=== PATIENT | male | born 1955 | race Caucasian/White ===

== ENCOUNTER 2019-03-06 06:24 | Day surgery (SDC) | payer OTHER ==
[2019-03-05 12:36] VITALS: BMI 40.1
[2019-03-06 10:34] VITALS: BP 124/61; PULSE 63; TEMP 98.9
--- NOTE | 2019-03-07 16:17 | PATH ---
Surgical Pathology Report Patient Name: GAGANDEEP DANIELLE [facility]. Rec. #: [id number] /Age/Gender: 1955 (Age: 63) / M Account: [id number] Location: U-ENDOSCOPY Taken: 03/06/2019 Received: 03/06/2019 Reported: 03/07/2019 Physicians: Jonh Gilliam M.D. Specimen(s) Received A: HEPATIC FLEXURE POLYP B: ILEOCECAL VALVE POLYP C: POLYP SIGMOID Clinical History Fifth and History of colon polyps, screening Postoperative diagnosis: Colon polyps and diverticulosis Final Diagnosis A. HEPATIC FLEXURE POLYP, POLYPECTOMY: TUBULAR ADENOMA. B. ILEOCECAL VALVE POLYP, POLYPECTOMY: TUBULAR ADENOMA. C. SIGMOID COLON POLYP, BIOPSY: HYPERPLASTIC POLYP. Electronically Signed Clary Stokes M.D. Gross Description A. Received in formalin, labeled "hepatic flexure polyp biopsy" is a brito, irregular portion of soft tissue measuring 0.5 cm. in greatest dimension. The specimen is submitted in toto in one cassette. B. Received in formalin, labeled "ileocecal valve polyp biopsy" are 4 brito, irregular portions of soft tissue ranging from 0.2-0.3 cm. in greatest dimension. The specimens are submitted in toto in one cassette. C. Received in formalin, labeled "sigmoid colon polyp biopsy" are 3 brito, irregular portions of soft tissue ranging from 0.3-0.4 cm. in greatest dimension. The specimens are submitted in toto in one cassette. DL/03/06/2019 saudi03/06/2019
== END 2019-03-06 09:50 | disposition home or self-care (01) ==
LOC: JASU-ENDO 06:24
PROVIDERS: ATTEND Internal Medicine Gastroenterology
PROC: 0DBL8ZX Excision of Transverse Colon, Via Natural or Artificial Opening Endoscopic, Diagnostic (ICD-10-PCS; 2019-03-06)
PROC: 0DBN8ZX Excision of Sigmoid Colon, Via Natural or Artificial Opening Endoscopic, Diagnostic (ICD-10-PCS; 2019-03-06)
PROC: 0DBC8ZX Excision of Ileocecal Valve, Via Natural or Artificial Opening Endoscopic, Diagnostic (ICD-10-PCS; principal; 2019-03-06 08:00)
DX: Z12.11 Encounter for screening for malignant neoplasm of colon (principal); Z86.010 Personal history of colon polyps; D12.5 Benign neoplasm of sigmoid colon; D12.3 Benign neoplasm of transverse colon; K57.30 Diverticulosis of large intestine without perforation or abscess without bleeding; K64.8 Other hemorrhoids
CPT/HCPCS: 88305-TC

== ENCOUNTER → 2020-09-11 | Day surgery (SDC) | payer OTHER ==
[2020-09-11 10:07] LABS: BASO % 0.9 % (0-2.0); EOS % 3.1 % (0-4.5); HEMATOCRIT 41.1 % (35.4-49); HEMOGLOBIN 14.3 GM/dL (11.7-16.9); LYMPH % 13.9 % (8-40); MCH 28.9 pg (25.7-33.7); MCHC 34.7 g/dl (32.0-35.9); MEAN CELL VOLUME 83.3 fl (80-96); MEAN PLT VOLUME 10.6 fl (7.5-11.1); NEUT % 75.1 % (42.8-82.8); PLATELET COUNT 123 K/MM3 (134-434); RBC 4.93 M/mm3 (4.00-5.60); RDW 13.5 % (11.9-15.9); WHITE BLOOD COUNT 6.9 K/mm3 (4.0-10.0)
[2020-09-11 10:11] LABS: INR 1.02 (0.83-1.09); PROTHROMBIN TIME (PATIENT) 12.5 SEC (9.7-13.0)
== END | disposition home or self-care (01) ==
LOC: JRADIR 09:07
PROVIDERS: ATTEND Orthopaedic Surgery Sports Medicine
PROC: BQ00YZZ Plain Radiography of Right Hip using Other Contrast (ICD-10-PCS; principal; 2020-09-11)
DX: M25.551 Pain in right hip (principal)
CPT/HCPCS: 27093; 36415; 73525-TC-FY; 85025; 85610

== ENCOUNTER 2021-09-04 01:19 | Inpatient (IN) | payer OTHER ==
[2021-09-04] MEDS ORDERED: SODIUM CHLORIDE 1,000 ML IV STA ×2 (02:47→05:30)
[2021-09-04 03:22] LABS: EPI CELLS 3 /uL (0-25.1); HYALINE CASTS 4 /uL (0-3.1); URINE APPEARANCE CLEAR; URINE BACTERIA 5 /uL (0-1359); URINE BILIRUBIN NEGATIVE (NEGATIVE); URINE COLOR DK YELLOW; URINE GLUCOSE (UA) NEGATIVE (NEGATIVE); URINE KETONE TRACE (NEGATIVE); URINE LEUK ESTERASE NEGATIVE (NEGATIVE); URINE NITRITE NEGATIVE (NEGATIVE); URINE PROTEIN 1+ (NEGATIVE); URINE RBC 7 /uL (0-23.9); URINE WBC 7 /uL (0-25.8)
[2021-09-04 03:25] LABS: BASO % 0.6 % (0-2.0); EOS % 0.1 % (0-4.5); HEMATOCRIT 40.4 % (35.4-49); HEMOGLOBIN 13.4 GM/dL (11.7-16.9); LYMPH % 7.2 % (8-40); MCH 28.4 pg (25.7-33.7); MCHC 33.2 g/dl (32.0-35.9); MEAN CELL VOLUME 85.5 fl (80-96); MONO % 8.6 % (3.8-10.2); NEUT % 83.5 % (42.8-82.8); RBC 4.72 M/mm3 (4.00-5.60); RDW 13.5 % (11.9-15.9); WHITE BLOOD COUNT 12.6 K/mm3 (4.0-10.0)
[2021-09-04 03:27] LABS: METHADONE, UR NEGATIVE (NEGATIVE); OPIATES, URI NEGATIVE (NEGATIVE); URINE BARBITURATES NEGATIVE (NEGATIVE)
[2021-09-04 03:28] LABS: PHENCYCLIDINE,URINE NEGATIVE (NEGATIVE)
[2021-09-04 03:29] LABS: URINE BENZODIAZEPINES NEGATIVE (NEGATIVE)
[2021-09-04 03:47] LABS: COCAINE, UR NEGATIVE (NEGATIVE); URINE AMPHETAMINES POSITIVE (NEGATIVE)
[2021-09-04 03:48] LABS: CHLORIDE 102 mmol/L (98-107); SODIUM 135 mmol/L (136-145)
[2021-09-04 03:50] LABS: CALCIUM 9.2 mg/dL (8.5-10.1)
[2021-09-04 03:51] LABS: ALBUMIN 4.1 g/dl (3.4-5.0); ANION GAP 11 MMOL/L (8-16); BLOOD UREA NITROGEN 41.8 mg/dL (7-18); CO2 23 mmol/L (21-32)
[2021-09-04 03:53] LABS: GLUCOSE,RANDOM 190 mg/dL (74-106)
[2021-09-04 03:54] LABS: CREATININE 2.2 mg/dL (0.55-1.3); SGOT/AST 100 U/L (15-37); SGPT/ALT 29 U/L (13-61)
[2021-09-04 03:56] LABS: TOT PROT 8.1 g/dl (6.4-8.2)
[2021-09-04 03:57] LABS: ALK PHOS 106 U/L (45-117)
[2021-09-04 04:12] LABS: MAGNESIUM 1.8 mg/dL (1.8-2.4); PHOSPHOROUS 3.5 mg/dL (2.5-4.9)
[2021-09-04 04:23] LABS: PLATELET ESTIMATE NORMAL
[2021-09-04 04:29] LABS: MEAN PLT VOLUME 10.2 fl (7.5-11.1); PLATELET COUNT 242 10^3/uL (134-434)
[2021-09-04 11:34] LABS: CALCIUM 9.5 mg/dL (8.5-10.1)
[2021-09-04 11:35] LABS: BLOOD UREA NITROGEN 39.5 mg/dL (7-18)
[2021-09-04 11:38] LABS: CREATININE 1.8 mg/dL (0.55-1.3)
[2021-09-04 12:51] VITALS: BMI 37.2
[2021-09-04] MEDS ORDERED: ACETAMINOPHEN 325 MG TABLET (FP) PO PRN (13:38)
[2021-09-04] MEDS: POTASSIUM CHLORIDE 10 MEQ in SODIUM CHLORIDE 0.45% 1,000 ML IVPB SCH (17:12)
[2021-09-04] MEDS: ATORVASTATIN CA 10 MG TABLET (FP) PO SCH (21:25)
[2021-09-05] MEDS ORDERED: HALOPERIDOL 5 MG TABLET PO ONE (00:06)
[2021-09-05] MEDS: HALOPERIDOL LACTATE 5 MG/ML IM PRN (00:27)
[2021-09-05] MEDS: POTASSIUM CHLORIDE 10 MEQ in SODIUM CHLORIDE 0.45% 1,000 ML IVPB SCH ×4 (01:14→20:15)
[2021-09-05] MEDS: glipiZIDE 5 MG TABLET (FP) PO SCH (06:00)
[2021-09-05] MEDS: ALLOPURINOL 100 MG TABLET (FP) PO SCH (10:26)
[2021-09-05 10:53] LABS: BASO % 0.6 % (0-2.0); EOS % 1.5 % (0-4.5); HEMATOCRIT 36.3 % (35.4-49); HEMOGLOBIN 12.5 GM/dL (11.7-16.9); LYMPH % 8.4 % (8-40); MCH 29.1 pg (25.7-33.7); MCHC 34.5 g/dl (32.0-35.9); MEAN CELL VOLUME 84.4 fl (80-96); MEAN PLT VOLUME 10.3 fl (7.5-11.1); MONO % 7.1 % (3.8-10.2); NEUT % 82.4 % (42.8-82.8); PLATELET COUNT 155 10^3/uL (134-434); RBC 4.29 M/mm3 (4.00-5.60); RDW 13.8 % (11.9-15.9); WHITE BLOOD COUNT 7.8 K/mm3 (4.0-10.0)
[2021-09-05 11:08] LABS: CALCIUM 8.8 mg/dL (8.5-10.1)
[2021-09-05 11:09] LABS: BLOOD UREA NITROGEN 31.9 mg/dL (7-18)
[2021-09-05 11:10] LABS: ALBUMIN 3.8 g/dl (3.4-5.0)
[2021-09-05 11:13] LABS: CREATININE 1.4 mg/dL (0.55-1.3)
[2021-09-05 11:14] LABS: BILIRUBIN,TOTAL 2.4 mg/dL (0.2-1); TOT PROT 7.5 g/dl (6.4-8.2)
[2021-09-05] MEDS: OLANZapine 5 MG TABLET PO SCH (22:26)
[2021-09-05] MEDS: ATORVASTATIN CA 10 MG TABLET (FP) PO SCH (22:26)
[2021-09-06] MEDS: POTASSIUM CHLORIDE 10 MEQ in SODIUM CHLORIDE 0.45% 1,000 ML IVPB SCH ×3 (02:27→17:13)
[2021-09-06] MEDS: glipiZIDE 5 MG TABLET (FP) PO SCH (06:07)
[2021-09-06] MEDS: ALLOPURINOL 100 MG TABLET (FP) PO SCH (09:35)
[2021-09-06] MEDS: OLANZapine 5 MG TABLET PO SCH ×2 (09:35→21:50)
[2021-09-06] MEDS: amLODIPine BESYLATE 5 MG TABLET (FP) PO SCH (11:03)
[2021-09-06] MEDS: ATORVASTATIN CA 10 MG TABLET (FP) PO SCH (21:50)
[2021-09-07] MEDS: POTASSIUM CHLORIDE 10 MEQ in SODIUM CHLORIDE 0.45% 1,000 ML IVPB SCH ×2 (02:14→13:12)
[2021-09-07] MEDS: glipiZIDE 5 MG TABLET (FP) PO SCH (06:01)
[2021-09-07] MEDS: OLANZapine 5 MG TABLET PO SCH ×2 (09:43→21:05)
[2021-09-07] MEDS: ALLOPURINOL 100 MG TABLET (FP) PO SCH (09:43)
[2021-09-07] MEDS: amLODIPine BESYLATE 5 MG TABLET (FP) PO SCH (09:43)
[2021-09-07] MEDS: HALOPERIDOL LACTATE 5 MG/ML IM PRN (12:53)
[2021-09-07] MEDS: ATORVASTATIN CA 10 MG TABLET (FP) PO SCH (21:05)
[2021-09-08] MEDS: POTASSIUM CHLORIDE 10 MEQ in SODIUM CHLORIDE 0.45% 1,000 ML IVPB SCH ×2 (06:09→10:04)
[2021-09-08] MEDS: glipiZIDE 5 MG TABLET (FP) PO SCH (06:27)
[2021-09-08 09:26] LABS: BASO % 0.7 % (0-2.0); EOS % 2.2 % (0-4.5); HEMATOCRIT 33.3 % (35.4-49); HEMOGLOBIN 11.1 GM/dL (11.7-16.9); LYMPH % 8.4 % (8-40); MCH 28.6 pg (25.7-33.7); MCHC 33.4 g/dl (32.0-35.9); MEAN CELL VOLUME 85.5 fl (80-96); MONO % 9.4 % (3.8-10.2); NEUT % 79.3 % (42.8-82.8); PLATELET COUNT 144 10^3/uL (134-434); RDW 13.5 % (11.9-15.9); WHITE BLOOD COUNT 8.8 K/mm3 (4.0-10.0)
[2021-09-08 09:33] LABS: BLOOD UREA NITROGEN 30.9 mg/dL (7-18); CALCIUM 8.8 mg/dL (8.5-10.1)
[2021-09-08 09:36] LABS: CREATININE 1.4 mg/dL (0.55-1.3)
[2021-09-08 09:38] LABS: BILIRUBIN,TOTAL 2.1 mg/dL (0.2-1); TOT PROT 6.5 g/dl (6.4-8.2)
[2021-09-08] MEDS: OLANZapine 5 MG TABLET PO SCH (10:21)
[2021-09-08] MEDS: ALLOPURINOL 100 MG TABLET (FP) PO SCH (10:21)
[2021-09-08] MEDS: amLODIPine BESYLATE 5 MG TABLET (FP) PO SCH (10:21)
[2021-09-08 12:13] LABS: PLATELET ESTIMATE DECREASED
[2021-09-09] MEDS: ATORVASTATIN CA 10 MG TABLET (FP) PO SCH
[2021-09-09] MEDS: POTASSIUM CHLORIDE 10 MEQ in SODIUM CHLORIDE 0.45% 1,000 ML IVPB SCH ×3 (06:08→13:26)
[2021-09-09] MEDS: glipiZIDE 5 MG TABLET (FP) PO SCH (06:09)
[2021-09-09] MEDS: amLODIPine BESYLATE 5 MG TABLET (FP) PO SCH (09:33)
[2021-09-09] MEDS: ALLOPURINOL 100 MG TABLET (FP) PO SCH (09:33)
[2021-09-09] MEDS: OLANZapine 5 MG TABLET PO SCH ×2 (09:33)
[2021-09-09 09:38] VITALS: BP 125/64; PULSE 91; TEMP 98.7
== END 2021-09-09 15:16 | disposition home or self-care (01) | DRG 918 ==
LOC: JER 01:19 → UNDOADMOB 05:39 → INTOOBSV 05:39 → JERBED 05:39 → J6S 11:25 → JERBED 11:25 → J6S 13:39 → OBSVTOIN 09-09 07:52
PROVIDERS: ADMIT Internal Medicine; ATTEND Internal Medicine
DX: T43.623A Poisoning by amphetamines, assault, initial encounter (principal); N17.9 Acute kidney failure, unspecified; M62.82 Rhabdomyolysis; T43 Poisoning by, adverse effect of and underdosing of psychotropic drugs, not elsewhere classified; E11.9 Type 2 diabetes mellitus without complications; Z79.84 Long term (current) use of oral hypoglycemic drugs; E66.9 Obesity, unspecified; Z68.37 Body mass index [BMI] 37.0-37.9, adult; F22 Delusional disorders; R00.0 Tachycardia, unspecified; F19.10 Other psychoactive substance abuse, uncomplicated; Y92.89 Other specified places as the place of occurrence of the external cause
CPT/HCPCS: 36415; 70450-TC; 71045-TC-FY; 80048; 80053; 80061; 80307; 81003; 82140; 82550; 82553; 82962; 83036; 83735; 84100; 84443; 84484; 85025; 87086; 93005; 93010; 99285-25; C9803; G0378; U0003; U0005

== ENCOUNTER 2021-09-28 13:42 | Emergency (ER) | payer OTHER ==
[2021-09-28 13:57] VITALS: BP 160/85; PULSE 80; TEMP 98; BMI 37.0
[2021-09-28] MEDS ORDERED: LIDOCAINE 5% TOPICAL PATCH TP ONE (14:19)
[2021-09-28] MEDS ORDERED: LIDOCAINE 5% TOPICAL PATCH ONE (14:24)
[2021-09-28] MEDS ORDERED: LIDOCAINE PATCH REMOVAL MC SCH (22:00)
== END 2021-09-28 14:42 | disposition home or self-care (01) ==
LOC: SUPCPDRO 13:42 → FER 13:42
DX: M54.50 Low back pain, unspecified (principal)
CPT/HCPCS: 81003; 87086; 99283-25